=== PATIENT | male | born 1970 | race Caucasian/White ===

== ENCOUNTER 2020-10-05 10:12 | Outpatient (CLI) | payer SELFPAY ==
[2020-10-05 11:09] LABS: Basophils % 0.6 %; Eosinophils # 0.1 10^3/uL (0.0-0.8); Eosinophils % 1.3 %; Hematocrit 46.7 % (42.0-52.0); Hemoglobin 16.5 g/dL (11.7-16.6); Lymphocytes # 2.3 10^3/uL (0.8-4.8); Lymphocytes % 36.4 %; Mean Corpuscular HGB Conc 35.3 g/dL (30.0-36.0); Mean Corpuscular Hemoglobin 34.9 pg (28.0-34.0); Mean Corpuscular Volume 98.7 fL (80-94); Mean Platelet Volume 8.4 fL (7.4-10.4); Monocytes # 0.6 10^3/uL (0.2-0.9); Monocytes % 9.2 %; Neutrophils # 3.34 10^3/uL (1.8-7.7); Neutrophils % 52.3 %; Nucleated Red Blood Cells % 0 %; Platelet Count 290 10^3/cmm (130-400); Red Blood Count 4.73 10^6/uL (4.1-5.3); Red Cell Distribution Width 11.9 % (12.1-15.1); White Blood Count 6.4 10^3/uL (4.0-10.0)
[2020-10-05 11:17] LABS: Alanine Aminotransferase 43 U/L (0-41); Alkaline Phosphatase 58 IU/L (40-130); Anion Gap 12.4 (5-19); Aspartate Amino Transferase 39 U/L (0-40); Blood Urea Nitrogen 9 mg/dL (6-20); Calcium 9.7 mg/dL (8.5-10.5); Carbon Dioxide 30 mmol/L (22-29); Chloride 96 mmol/L (98-107); Chol HDL Ratio 4.29 mg/dL (1.0-5.00); Cholesterol 180 mg/dL (0-200); Globulin 3.5 g/dL (1.3-4.6); Glomerular Filtration Rate 79.8 mL/min (90-130); Glucose 107 mg/dL (65-115); HDL Cholesterol 42 mg/dL (60-100); LDL Cholesterol Calculated 68 mg/dL (50-129); LDL HDL Ratio 1.62 RATIO (0.00-3.22); Osmolality Calculated 279 mOsm/kg (285-295); Potassium 3.4 mmol/L (3.5-5.1); Sodium 135 mmol/L (136-145); Total Bilirubin 0.7 mg/dL (0.15-1.2); Total Protein 7.5 g/dL (6.6-8.7); Triglycerides 351 mg/dL (0-150)
[2020-10-05 11:38] LABS: Estmated Average Glucose 108; Hemoglobin A1C 5.4 % (4.0-6.0)
== END 2020-10-05 10:13 | disposition home or self-care (01) ==
PROVIDERS: PCP Dermatology; Visit Provider Dermatology
DX: Z01.89 Encounter for other specified special examinations (principal)
CPT/HCPCS: 80053; 80061; 83036; 85025

== ENCOUNTER → 2023-03-13 14:54 | Outpatient (BNVA) | payer MEDICAID, SELFPAY | PROVIDERS: PCP Dermatology; Visit Provider Nurse Practitioner Family | DX: I96 Gangrene, not elsewhere classified (principal); L89.152 Pressure ulcer of sacral region, stage 2 | CPT/HCPCS: 11042; 99213; A6251 ==

== ENCOUNTER → 2023-03-20 15:52 | Outpatient (BNVA) | payer MEDICAID, SELFPAY | PROVIDERS: PCP Family Medicine; Visit Provider Nurse Practitioner Family | DX: I96 Gangrene, not elsewhere classified (principal); L89.152 Pressure ulcer of sacral region, stage 2 | CPT/HCPCS: 97597; A6210; A6212 ==

== ENCOUNTER → 2023-03-27 14:48 | Outpatient (BNVA) | payer MEDICAID, SELFPAY | PROVIDERS: PCP Family Medicine; Visit Provider Nurse Practitioner Family | DX: I96 Gangrene, not elsewhere classified (principal); L89.152 Pressure ulcer of sacral region, stage 2 | CPT/HCPCS: 97597; A6210; A6212 ==

== ENCOUNTER → 2023-04-03 15:34 | Outpatient (BNVA) | payer MEDICAID, SELFPAY | PROVIDERS: PCP Family Medicine; Visit Provider Nurse Practitioner Family | DX: I96 Gangrene, not elsewhere classified (principal); L89.152 Pressure ulcer of sacral region, stage 2 | CPT/HCPCS: 97597; A6210; A6212 ==

== ENCOUNTER → 2023-04-10 09:42 | Outpatient (BNVA) | payer MEDICAID, SELFPAY | PROVIDERS: PCP Family Medicine; Visit Provider Nurse Practitioner Family | DX: Z09 Encounter for follow-up examination after completed treatment for conditions other than malignant neoplasm (principal); Z87.2 Personal history of diseases of the skin and subcutaneous tissue | CPT/HCPCS: 99212 ==

== ENCOUNTER → 2024-02-27 08:00 | Outpatient (BNVA) | payer MEDICAID, OTHER, SELFPAY | PROVIDERS: PCP Family Medicine; Visit Provider Surgery | DX: Z12.11 Encounter for screening for malignant neoplasm of colon (principal) | CPT/HCPCS: 99024; 99203 ==

== ENCOUNTER 2024-04-22 05:53 | Day surgery (SDC) | payer MEDICAID, SELFPAY ==
--- NOTE | 2024-04-22 05:49 | W.PM.OPSFHP ---
Same Day Surgery H&P Indication for Procedure/HPI DATE OF PROCEDURE: April 22, 2024 CHIEF COMPLAINT/INDICATIONFOR SURGICAL PROCEDURE: need for screening colonoscopy PREOP DIAGNOSIS: need for screening colonoscopy PLANNED PROCEDURE: Operation Date: 04/22/24 07:00 Proposed Procedures p Colonoscopy - 51406, G0121, Z12.11(Not Applicable) - Pierre Solorzano MD Medications/Allergies* Home Medications Medication Instructions Recorded Confirmed Type ibuprofen 800 mg tablet 1 ea PO PRN PRN Pain 02/01/23 04/17/24 History sildenafil 100 mg tablet 1 ea PO PRN 02/01/23 04/17/24 History tramadol 50 mg tablet 50 mg PO TID PRN Pain 02/01/23 04/17/24 History losartan 100 1 tab PO ONCE 02/27/24 04/17/24 History mg-hydrochlorothiazide 25 mg tablet triamcinolone acetonide 0.1 % 1 applic topical DAILY PRN Itching 02/27/24 04/17/24 History topical cream Allergies/Adverse Reactions Allergy/AdvReac Type Severity Reaction Status Date / Time methotraxate Allergy Unconscious Uncoded 04/17/24 13:04 Pertinent History/Comorbid Conditions* Family History (Updated 02/27/24 @ 08:32 by SUSAN Najera) Lymphoma Mother Lung cancer Father Social History Smoking and tobacco/nicotine status: current every day tobacco/nicotine user (chewing tobacco) smokeless tobacco Smokeless tobacco user: chewing tobacco Alcohol intake: former Pertinent Exam Findings alert, oriented x 3, clear to auscultation bilaterally and regular rate & rhythm Recommendations Surgery/Procedure today Coding Level of Care Code Acute Code for Chg Fwd
[2024-04-22 06:11] VITALS: BP 137/90; PULSE 75; RESP 18; TEMP 36.4; O2SAT 98; BMI 18.6
[2024-04-22] MEDS: sodium chloride 0.9% 1,000 ML 30 ML IV (06:20)
--- NOTE | 2024-04-22 06:41 | ANES.PREANE2 ---
Pre-Anesthetic Assessment Height/Weight: Height 1.88 m Weight 65.771 kg Temp Pulse Resp BP Pulse Ox O2 Del Method 97.5 F L 75 18 137/90 98 Room Air 04/22/24 06:11 04/22/24 06:11 04/22/24 06:11 04/22/24 06:11 04/22/24 06:11 04/22/24 06:11 Preop Diagnosis: need for screening colonoscopy Operation Date: 04/22/24 07:00 Proposed Procedures p Colonoscopy - 84331, G0121, Z12.11(Not Applicable) - Pierre Solorzano MD Familial anesthetic complications: none Was Beta Dina taken within 24 hours: N/A Was Clonidine taken within 24 hours: N/A Last intake: Intake Last Liquid Date 04/21/24 Last Liquid Time 23:00 Last Solid Date 04/20/24 Last Solid Time 22:00 Social Tobacco (chewing tobacco 0.) Exam alert, oriented x 3, clear to auscultation bilaterally and regular rate & rhythm Airway Submandibular: within normal limits Cervical ROM: within normal limits Mallampati: Class II Dentition: full Pulmonary None reported CV/HEM Hypertension None reported Hepatic About a year ago patient drank regularly and started methotrexate for arthritis, this resulted in hospitalization liver failure and pneumonia requiring intubation x 10 days. GI None reported Metabolic None reported Musc/skel None reported Neuropsych None reported Anesthetic Plan ASA status: 3 Anesthesia: MAC Medications/Allergies Home Medications Medication Instructions Recorded Confirmed Last Taken Type ibuprofen 800 mg tablet 1 ea PO PRN PRN Pain 02/01/23 04/17/24 04/15/24 History sildenafil 100 mg tablet 1 ea PO PRN 02/01/23 04/17/24 Unknown History tramadol 50 mg tablet 50 mg PO TID PRN Pain 02/01/23 04/17/24 03/06/24 History losartan 100 1 tab PO ONCE 02/27/24 04/17/24 04/22/24 05:30 History mg-hydrochlorothiazide 25 mg tablet triamcinolone acetonide 0.1 % 1 applic topical DAILY PRN Itching 02/27/24 04/17/24 Unknown History topical cream Allergies Allergy/AdvReac Type Severity Reaction Status Date / Time methotraxate Allergy Unconscious Uncoded 04/17/24 13:04 Current Medications Generic Name Dose Route Start Last Admin Trade Name Freq PRN Reason Stop Dose Admin Sodium Chloride 1,000 mls @ 30 mls/hr 04/22/24 06:00 04/22/24 06:20 Sodium Chloride 0.9% IV 30 mls/hr .Q24H SIXTO Administration PFSH Anesthesia Family History (Updated 02/27/24 @ 08:[address]) Father Lung cancer Mother Lymphoma Social History (Updated 02/27/24 @ 08:[address]) Smoking and tobacco/nicotine status: current every day tobacco/nicotine user (chewing tobacco) smokeless tobacco Smokeless tobacco user: chewing tobacco Alcohol intake: former Data Anesthesia Cardiac Studies: No Data to Display
[2024-04-22 07:30] VITALS: BP 105/67; PULSE 64; RESP 18; TEMP 36.3; O2SAT 96
[2024-04-22 07:41] VITALS: BP 113/66; PULSE 76; RESP 18; TEMP 36.2; O2SAT 95
--- NOTE | 2024-04-22 07:55 | ANE.PACU2 ---
Inpatient post-anesthesia follow up: Airway intact: Yes Vital signs: Temperature 97.2 F Pulse Rate 76 Respiratory Rate 18 Blood Pressure 113/66 Pulse Oximetry 95 Oxygen Delivery Me thod Room Air Oxygen Flow Rate Fraction of Inspir ed Oxygen Hydration adequate: Yes Nausea and vomiting: No Pain level: 1 Mental status: Baseline
== END 2024-04-22 07:56 | disposition home or self-care (01) ==
PROVIDERS: PCP Family Medicine; Visit Provider Surgery
PROC: 0DJD8ZZ Inspection of Lower Intestinal Tract, Via Natural or Artificial Opening Endoscopic (ICD-10-PCS; CPT 45378; principal; 2024-04-22 07:00)
DX: Z12.11 Encounter for screening for malignant neoplasm of colon (principal); F17.220 Nicotine dependence, chewing tobacco, uncomplicated; K64.8 Other hemorrhoids; K57.30 Diverticulosis of large intestine without perforation or abscess without bleeding; I10 Essential (primary) hypertension
CPT/HCPCS: 45378; J2704; J7030